=== PATIENT | female | born 2000 | race Caucasian/White ===

== ENCOUNTER → 2019-12-22 | Outpatient (CLI) | payer BC ==
[2019-12-22 20:35] LABS: B-hCG (QUALITATIVE) NEGATIVE (NEGATIVE); FREE T4 1.02 ng/dl (0.76-1.46)
== END | disposition home or self-care (01) ==
LOC: LAB 19:33
DX: N92.6 Irregular menstruation, unspecified (principal)

== ENCOUNTER → 2020-01-11 | Outpatient (CLI) | payer BC ==
[2020-01-12 09:07] LABS: FOLLICLE STIMULATING HORMONE 5.1 mIU/mL (.); LUTEINIZING HORMONE 2.8 mIU/mL (.); PROLACTIN 13.2 ng/mL (4.8-23.3); SEX HORMONE BINDING GLOBULIN 88.6 nmol/L (24.6-122.0)
[2020-01-13 00:06] LABS: TESTOSTERONE FREE, (DIRECT) 0.8 pg/mL (0.0-4.2)
== END | disposition home or self-care (01) ==
LOC: LAB 07:51
PROVIDERS: ATTEND Student in an Organized Health Care Education/Training Program
DX: N92.6 Irregular menstruation, unspecified (principal); R53.83 Other fatigue; L70.0 Acne vulgaris

== ENCOUNTER 2021-12-05 00:47 | Emergency (ER) | payer OTHER, BC ==
[~2021-12-05] VITALS: Ht 157.4 cm; Wt 52.2 kg
[2021-12-05] MEDS ORDERED: Ondansetron4 MG PO (01:11)
== END 2021-12-05 03:17 | disposition home or self-care (01) ==
LOC: ED 00:47
DX: S09.90XA Unspecified injury of head, initial encounter (principal); Y04.0XXA Assault by unarmed brawl or fight, initial encounter; Y93.89 Activity, other specified; Y92.89 Other specified places as the place of occurrence of the external cause; Y99.9 Unspecified external cause status

== ENCOUNTER 2021-12-13 11:45 | Emergency (ER) | payer OTHER, BC ==
[~2021-12-13 11:45] MED LIST: Ondansetron4 MG PO
== END 2021-12-13 14:55 | disposition left against medical advice (07) ==
LOC: ED 11:45
DX: R11.10 Vomiting, unspecified (principal); R19.7 Diarrhea, unspecified; R51.9 Headache, unspecified; Z53.21 Procedure and treatment not carried out due to patient leaving prior to being seen by health care provider

== ENCOUNTER → 2022-02-16 | Outpatient (CLI) | payer OTHER, BC ==
[2022-02-16 16:06] LABS: BASO % 0.6 % (0.0-1.0); EOS # 0.1 10*3/uL (0.0-0.4); HEMATOCRIT 37.7 % (37.0-47.0); LYMPH # 1.8 10*3/uL (1.3-4.4); LYMPH % 29.5 % (27.0-41.0); MEAN CELL VOLUME 81.6 fl (81.0-99.0); MEAN CORPUSCULAR HGB CONC 31.8 g/dl (33.0-37.0); MEAN PLATELET VOLUME 8.8 fl (9.6-12.3); MONO # 0.4 10*3/uL (0.1-1.0); MONO % 6.3 % (3.0-9.0); NEUT # 3.9 10*3/uL (2.3-7.9); NEUT % 62.4 % (47.0-73.0); PLATELET COUNT AUTOMATED 302 10*3/uL (130-400); RED BLOOD COUNT 4.62 10*6/uL (4.10-5.10); RETICULOCYTE % 1.42 % (0.50-2.50); WHITE BLOOD COUNT 6.2 10*3/uL (4.8-10.8)
[2022-02-16 16:28] LABS: ALKALINE PHOSPHATASE 68 U/L (45-117); BUN 8 mg/dl (7-24); CHLORIDE 109 mmol/L (98-107); CREATININE 0.71 mg/dL (0.55-1.02); FREE T4 0.93 ng/dl (0.76-1.46); IRON 28 ug/dL (50-170); LDH 173 U/L (84-246); POTASSIUM 3.7 mmol/L (3.5-5.1); SGOT/AST 18 IU/L (3-35); SGPT/ALT 24 U/L (12-78); SODIUM 140 mmol/L (136-145); TOTAL PROTEIN 7.5 gm/dL (6.4-8.2)
[2022-02-16 17:16] LABS: FERRITIN 2.3 ng/mL (10.0-291.0); VITAMIN D, 25-HYDROXY 32.1 ng/mL (30-100)
[2022-02-21 00:06] LABS: METHYLMALONIC ACID 213 nmol/L (0-378)
== END | disposition home or self-care (01) ==
LOC: LAB 15:30
PROVIDERS: ATTEND Internal Medicine Hematology & Oncology
DX: D50.8 Other iron deficiency anemias (principal); Z78.9 Other specified health status